=== PATIENT | male | born 1945 | race Caucasian/White ===

== ENCOUNTER 2017-10-05 16:15 | Emergency (ER) | payer MEDICARE, SELFPAY ==
[2017-10-05 16:17] VITALS: BP 128/76; PULSE 86; RESP 18; TEMP 36.4; O2SAT 99; BMI 28.6
--- NOTE | 2017-10-05 17:11 | ED.VISSUMM ---
- ER Visit Summary Date of Service: 10/05/17 Chief Complaint: [Foreign body left ear] History of Present Illness: The patient is a 72 M [presents the emergency department with complaint of a piece of his hearing aid being stuck in his left ear canal. Patient states this occurred about an hour ago. Patient denies any pain or bleeding from the ear.] Physical Examination: [HEENT-PERRLA, EOMI. Cranial nerves II through XII grossly intact. TMs clear. Mucous membranes moist. No adenopathy. Left ear-patient has a piece of plastic/foreign body noted left ear canal. Cardiovascular-regular rate and rhythm without murmur or ectopy Lungs-clear to auscultation, chest wall stable without crepitus or subcu emphysema Abdomen-normoactive bowel sounds, soft, nontender, no rebound or rigidity, no peritoneal signs. Extremities-intact ?4, normal range of motion, normal pulses, atraumatic] Test Results: [None indicated] Emergency Department Course and Treatment: [Using splinter forceps I was easily able to grasp and remove the foreign body. Reevaluation of the ear after removal of foreign body notes that there is no evidence of trauma to the ear canal or eardrum.] Treatment Plan: [Follow-up with primary care physician as needed] Disposition: [Discharged home in stable condition] Impression: [Left ear canal foreign body-removed] This note was generated with [employer] dictation software. It may contain incorrect words, spelling, and punctuation that were not noted in review of the chart prior to signing ED Disposition - Plan for ED Patient: Chief Complaint: Foreign Body Referrals: Rordigo Barrera MD [Primary Care Provider] -
--- NOTE | 2017-10-05 17:13 | ED.DEP ---
ED Disposition - Plan for ED Patient: Chief Complaint: Foreign Body Instructions: ED Foreign Body Ear Canal Referrals: Rodrigo Barrera MD [Primary Care Provider] - As Needed
[2017-10-05 17:26] VITALS: PULSE 82; RESP 16; O2SAT 98
== END 2017-10-05 17:26 | disposition home or self-care (01) ==
LOC: ED 17:18
PROVIDERS: Emergency Provider Emergency Medicine; Family Provider Internal Medicine; PCP Internal Medicine
DX: T16.2XXA Foreign body in left ear, initial encounter (principal)
CPT/HCPCS: 69200; 99282